=== PATIENT | male | born 1975 | race Hispanic/Latino ===

== ENCOUNTER → 2019-10-20 | Outpatient (CLI) | payer BC ==
[~2019-10-20] MED LIST: CLEOCIN HCL300 MG; LEVOFLOXACIN500 MG; PREDNISONE5 M2; Z PROGRAF; Z.0.ACTIGALL300 MG; Z.0.COZAAR100 MG; Z.0.LIPITOR10 MG; [UNRECOGNIZED DRUG - OTHER]
--- NOTE | 2019-10-20 16:35 | Diagnostic Imaging Report ---
Right great toe, 3 views. History: Right great toe pain. Findings: The soft tissues are normal. Bone mineralization is normal. There is no evidence of fracture or dislocation. There are no lytic or sclerotic lesions. The joint spaces are within normal limits. IMPRESSION: Normal right great toe. Signed by: Justen Bingham on 10/20/2019 4:32 PM
== END ==
LOC: RAD 15:48
PROVIDERS: ATTEND Family Medicine
DX: M79.674 Pain in right toe(s) (principal)

== ENCOUNTER → 2022-06-20 | Outpatient (CLI) | payer BC | LOC: DX 12:36 | PROVIDERS: ATTEND Family Medicine | DX: M19.09 Primary osteoarthritis, other specified site (principal) | CPT/HCPCS: 77080 ==